=== PATIENT | male | born 1985 | race Caucasian/White ===

== ENCOUNTER 2017-09-06 07:12 | Day surgery (SDC) | payer OTHER ==
[~2017-09-06 07:12] MED LIST: PROPOFOL 200 MG INJ; SUCCINYLCHOLINE CHLORIDE 100 MG/5 ML SYG IV
[2017-09-06] MEDS ORDERED: ONDANSETRON 4 MG INJ (08:56)
[2017-09-06] MEDS ORDERED: PROPOFOL 20 ML (08:56)
[2017-09-06] MEDS ORDERED: ROCURONIUM 50 MG INJ (08:56)
[2017-09-06] MEDS ORDERED: CEFAZOLIN 1 GM INJ (08:56)
[2017-09-06] MEDS ORDERED: DEXAMETHASONE 4 MG/ML 1 ML INJ (08:56)
[2017-09-06] MEDS ORDERED: FENTAnyl 50 MCG/ML VIAL ×2 (08:56→11:05)
[2017-09-06] MEDS ORDERED: GLYCOPYRROLATE 0.4 MG INJ (08:56)
[2017-09-06] MEDS ORDERED: NEOSTIGMINE 3 MG/3 ML SYRINGE (08:56)
[2017-09-06] MEDS ORDERED: MIDAZOLAM 1 MG/ML 2 ML INJ (08:56)
[2017-09-06] MEDS: LIDOCAINE 1% (MPF) 30 ML INJ (09:23)
[2017-09-06] MEDS ORDERED: MIDAZOLAM 1 MG/ML 2 ML INJ IV (09:30)
[2017-09-06] MEDS ORDERED: OXYCODONE/ACETAMINOPHEN (5/325) TAB PO (09:30)
[2017-09-06] MEDS ORDERED: EPHEDrine SULFATE 50 MG/5 ML SYG IV (09:30)
[2017-09-06] MEDS ORDERED: TRIMETHOBENZAMIDE 100 MG/ML VIAL IM (09:30)
[2017-09-06] MEDS ORDERED: hydrALAzine 20 MG INJ IV (09:30)
[2017-09-06] MEDS ORDERED: DIPHENHYDRAMINE 50 MG INJ IV (09:30)
[2017-09-06] MEDS ORDERED: HYDROmorphONE (0.2 MG/ML) 10ML SYG IV ×2 (09:30)
[2017-09-06] MEDS ORDERED: FENTAnyl 50 MCG/ML VIAL IV ×3 (09:30)
[2017-09-06] MEDS ORDERED: ALBUTEROL 0.083% (NEB) 2.5 MG/3 ML AMP HHN (09:30)
[2017-09-06] MEDS ORDERED: MEPERIDINE 25 MG INJ IV (09:30)
[2017-09-06] MEDS ORDERED: LABETALOL HCL 20MG INJ IV (09:30)
[2017-09-06] MEDS ORDERED: IPRATROPIUM (NEB) 0.5 MG/2.5 ML AMP HHN (09:30)
[2017-09-06] MEDS: ROPIVACAINE 0.5 % 30 ML VIAL (09:37)
[2017-09-06] MEDS: morphine SULFATE/PF (10 MG/10 ML) INJ (09:37)
[2017-09-06] MEDS ORDERED: KETOROLAC 30 MG INJ (11:04)
[2017-09-06] MEDS ORDERED: SUGAMMADEX SODIUM 200 MG/2 ML VIAL IV (11:05)
[2017-09-06] MEDS: ONDANSETRON 4 MG INJ IV (11:28)
[2017-09-06] MEDS: HYDROmorphONE (0.2 MG/ML) 10ML SYG IV ×3 (11:29→11:59)
[2017-09-06] MEDS ORDERED: morphine 2 MG INJ IV (11:30)
[2017-09-06] MEDS ORDERED: morphine 10 MG INJ IV (11:30)
[2017-09-06] MEDS: OXYCODONE/ACETAMINOPHEN (5/325) TAB PO (13:13)
== END 2017-09-06 13:17 | disposition home or self-care (01) ==
LOC: SDS 07:12
DX: M23.232 Derangement of other medial meniscus due to old tear or injury, left knee (principal); M23.252 Derangement of posterior horn of lateral meniscus due to old tear or injury, left knee; E66.9 Obesity, unspecified; Z68.34 Body mass index [BMI] 34.0-34.9, adult
CPT/HCPCS: 29880; 82306